=== PATIENT | male | born 1980 | race Caucasian/White ===

== ENCOUNTER 2025-02-05 09:56 | Emergency (ER) | payer OTHER, BC ==
[2025-02-05] MEDS: Ketorolac 30 MG/ML SDV IM ONE (10:45)
== END 2025-02-05 11:25 | disposition home or self-care (01) ==
LOC: LB.ED 09:56
DX: S46.212A Strain of muscle, fascia and tendon of other parts of biceps, left arm, initial encounter (principal); F17.200 Nicotine dependence, unspecified, uncomplicated; W01.0XXA Fall on same level from slipping, tripping and stumbling without subsequent striking against object, initial encounter
CPT/HCPCS: 96372; 99283; A9270; J1885